=== PATIENT | male | born 1950 | race Caucasian/White ===

== ENCOUNTER → 2020-01-05 | Outpatient (CLI) | payer OTHER ==
[~2020-01-05] MED LIST: DILAUDID2 MG PO; FLOMAX0.4 MG PO; LEVAQUIN500 MG PO; PEPCID20 MG PO; ZOFRAN ODT4 MG SL
--- NOTE | 2020-01-05 11:51 | Diagnostic Imaging Report ---
Right shoulder, 2 views INDICATION: ^[id number] ^[id number] ^PAIN IN RIGHT SHOULDER Comparison: None available. Discussion: Negative for grossly displaced fracture or dislocation. Normal internal rotation is noted. Glenohumeral joint space is well maintained. Severe degenerative change of the clavicular joint space is noted with inferior spurring. Soft tissues are unremarkable. Partially visualized lung parenchyma is clear. IMPRESSION: Negative for acute displaced fracture or dislocation of the right shoulder. Severe right acromioclavicular degenerative changes noted. Signed by: Emmanuel Denny MD on 01/05/2020 11:48 AM
== END ==
LOC: RAD 10:50
PROVIDERS: ATTEND Family Medicine
DX: M25.511 Pain in right shoulder (principal)

== ENCOUNTER 2021-05-28 12:35 | Inpatient (IN) | payer MEDICARE, OTHER ==
[~2021-05-28] VITALS: Ht 167.6 cm; Wt 69.9 kg
[2021-05-28] MEDS ORDERED: DIGOXIN INJ 0.25 MG/ML 2 ML AMP IV STA ×2 (12:47)
[2021-05-28] MEDS ORDERED: DILTIAZEM HCL 5 MG/ML 5 ML VIAL IV STA (12:47)
[2021-05-28] MEDS ORDERED: METOPROLOL TARTRATE INJ 1 MG/ML VIAL IV STA (12:47)
[2021-05-28 13:02] LABS: BASOPHILS # (AUTO) 0.1 (0.0-0.1); BASOPHILS % 0.3 % (0.0-1.0); EOSINOPHILS # (AUTO) 0.1 (0.0-0.4); EOSINOPHILS % 0.2 % (0.0-6.0); HEMATOCRIT 45.8 % (38.2-49.6); HEMOGLOBIN 15.3 g/dL (14.0-18.0); LYMPHOCYTES # (AUTO) 1.7 (1.0-3.2); LYMPHOCYTES % 8.1 % (18.0-39.1); MEAN CORPUSCULAR HEMOGLOBIN 32.8 pg (28-32); MEAN CORPUSCULAR HGB CONC 33.4 g/dL (31-35); MEAN CORPUSCULAR VOLUME 98.3 fL (81-99); MONOCYTES # (AUTO) 1.3 (0.2-0.8); MONOCYTES % 6.3 % (4.4-11.3); NEUTROPHILS # (AUTO) 17.7 (2.1-6.9); NEUTROPHILS % 84.3 % (38.7-80.0); PLATELET COUNT 203 x10e3/uL (140-360); RED BLOOD COUNT 4.66 x10e6/uL (4.3-5.7); RED CELL DISTRIBUTION WIDTH 14.2 % (11.7-14.4)
[2021-05-28 13:21] LABS: ANION GAP 15.9 mmol/L (8-16); CALCIUM 10.1 mg/dL (8.4-10.2); CREATININE, SERUM 1.44 mg/dL (0.72-1.25); MAGNESIUM 1.8 MG/DL (1.3-2.1); POTASSIUM 3.9 mmol/L (3.5-5.1)
[2021-05-28] MEDS ORDERED: SODIUM CHLORIDE 0.9% 1000ML 1,000 ML IV ONE ×2 (13:30→15:30)
[2021-05-28] MEDS ORDERED: ONDANSETRON HCL INJ 2MG/ML 2ML 2 MG/ML VIAL IV PRN ×2 (13:45→14:45)
[2021-05-28] MEDS ORDERED: ACETAMINOPHEN 325 MG TAB PO ONE ×2 (13:45)
[2021-05-28] MEDS ORDERED: CEFTRIAXONE 1 GM in SODIUM CHLORIDE 0.9% 50ML 50 ML IV SCH (14:00)
[2021-05-28] MEDS ORDERED: ACETAMINOPHEN 325 MG TAB ONE (14:03)
[2021-05-28] MEDS ORDERED: IOPAMIDOL 370 MG/ML 200 ML INFUS..BTL INJ ONE (14:15)
[2021-05-28] MEDS ORDERED: SODIUM CHLORIDE 0.9% 50ML 50 ML ONE (14:15)
[2021-05-28] MEDS ORDERED: SODIUM CHLORIDE FLUSH 10 ML SYR INJ PRN (14:45)
[2021-05-28] MEDS ORDERED: ASPIRIN 81 MG CHEW TAB PO ONE (14:45)
[2021-05-28 14:56] LABS: CLARITY,URINE SL CLOUDY (CLEAR); COLOR,URINE YELLOW (YELLOW); KETONES,URINE NEGATIVE (NEGATIVE); LEUKOCYTE ESTERASE ,URINE NEGATIVE (NEGATIVE); NITRITE,URINE NEGATIVE (NEGATIVE); PROTEIN,URINE DIPSTICK TRACE (NEGATIVE)
[2021-05-28 14:57] LABS: URINE UROBILINOGEN 0.2 mg/dL (0.2 - 1)
[2021-05-28 15:03] LABS: AMORPHOUS SEDIMENT,URINE FEW (FEW); BACTERIA,URINE FEW /HPF; HYALINE CASTS 0-1 (0-1)
[2021-05-28 15:04] LABS: MUCUS,URINE MODERATE (RARE)
[2021-05-28] MEDS ORDERED: IBUPROFEN 600 MG TAB PO PRN (15:30)
[2021-05-28 16:21] VITALS: BP 98/66
[2021-05-28 16:27] VITALS: BP 98/66
[2021-05-28 16:44] VITALS: BP 98/66
[2021-05-28] MEDS ORDERED: METOPROLOL TARTRATE 25 MG TAB PO SCH (17:00)
[2021-05-28] MEDS ORDERED: HEPARIN 25,000 UNIT 800 UNIT in DEXTROSE 5% 250ML 250 ML IV SCH ×4 (17:15)
[2021-05-28] MEDS ORDERED: AMIODARONE HCL 150 MG in DEXTROSE 5% 100ML 100 ML IV ONE (17:15)
[2021-05-28] MEDS ORDERED: AMIODARONE 900MG 500 ML IV SCH ×2 (17:30→23:30)
[2021-05-28 17:50] LABS: INR 1.42; PROTHROMBIN TIME 18.5 seconds (11.9-14.5)
[2021-05-28 17:51] LABS: PARTIAL THROMBOPLASTIN TIME 42.4 seconds (23.8-35.5)
[2021-05-28] MEDS ORDERED: ALTOPREV40 MG PO (18:06)
[2021-05-28] MEDS ORDERED: GLIMEPIRIDE2 MG PO (18:07)
[2021-05-28] MEDS ORDERED: ELIQUIS5 MG PO (18:08)
[2021-05-28] MEDS ORDERED: CETIRIZINE HCL10 MG PO (18:08)
[2021-05-28] MEDS ORDERED: METFORMIN HCL500 MG PO (18:09)
[2021-05-28 19:00] VITALS: BP 119/77
[2021-05-28 23:00] VITALS: BP 122/65
[2021-05-28] MEDS: METOPROLOL TARTRATE 25 MG TAB PO SCH (23:45)
[2021-05-28] MEDS: CEFTRIAXONE 1 GM in SODIUM CHLORIDE 0.9% 50ML 50 ML IV SCH (23:45)
[2021-05-29] VITALS (7 sets, daily range): BP systolic 87–115; BP diastolic 52–69
[2021-05-29] MEDS ORDERED: ACETAMINOPHEN 325 MG TAB PO ONE
[2021-05-29] MEDS: IPRATROPIUM BROMIDE 0.02% 2.5 ML NEB NEB SCH ×3 (01:00→13:00)
[2021-05-29 05:20] LABS: BASOPHILS # (AUTO) 0.1 (0.0-0.1); BASOPHILS % 0.4 % (0.0-1.0); HEMATOCRIT 38.9 % (38.2-49.6); HEMOGLOBIN 12.9 g/dL (14.0-18.0); LYMPHOCYTES # (AUTO) 1.8 (1.0-3.2); LYMPHOCYTES % 11.4 % (18.0-39.1); MEAN CORPUSCULAR HEMOGLOBIN 32.3 pg (28-32); MEAN CORPUSCULAR HGB CONC 33.2 g/dL (31-35); MEAN CORPUSCULAR VOLUME 97.3 fL (81-99); MONOCYTES # (AUTO) 1.2 (0.2-0.8); MONOCYTES % 7.2 % (4.4-11.3); NEUTROPHILS % 80.3 % (38.7-80.0); PLATELET COUNT 151 x10e3/uL (140-360); RED CELL DISTRIBUTION WIDTH 14.2 % (11.7-14.4)
[2021-05-29 05:50] LABS: ANION GAP 11.6 mmol/L (8-16); CREATININE, SERUM 1.22 mg/dL (0.72-1.25); POTASSIUM 3.6 mmol/L (3.5-5.1)
[2021-05-29 06:19] LABS: CREATINE KINASE MB 0.7 ng/mL (0-5.0)
[2021-05-29] MEDS ORDERED: DEXTROSE 50% SYRINGE 50 ML IV PRN (09:00)
[2021-05-29] MEDS: CEFTRIAXONE 1 GM in SODIUM CHLORIDE 0.9% 50ML 50 ML IV SCH ×2 (09:10→20:57)
[2021-05-29] MEDS: ASPIRIN 81 MG ENTERIC COATED PO SCH (09:10)
[2021-05-29] MEDS: APIXABAN 5 MG TABLET PO SCH ×2 (09:10→17:02)
[2021-05-29] MEDS: AMIODARONE HCL 200 MG TAB PO SCH ×2 (09:10→17:02)
[2021-05-29] MEDS: METOPROLOL TARTRATE 25 MG TAB PO SCH ×2 (09:11→17:02)
[2021-05-29] MEDS: LORATADINE 10 MG TAB PO SCH (09:43)
[2021-05-29] MEDS: SODIUM CHLORIDE 0.9% 1000ML 1,000 ML IV SCH ×2 (09:43→19:47)
[2021-05-29] MEDS: INSULIN LISPRO 100 UNIT/1 ML 3ML VIAL SQ SCH ×3 (11:30→20:57)
[2021-05-29 13:18] LABS: CREATINE KINASE MB 0.7 ng/mL (0-5.0)
[2021-05-29] MEDS: TAMSULOSIN HCL 0.4 MG CAP PO SCH (17:02)
[2021-05-29] MEDS: SIMVASTATIN 20 MG TAB PO SCH (20:57)
[2021-05-29] MEDS: MELATONIN 5 MG TABLET PO PRN (20:57)
[2021-05-30] VITALS (9 sets, daily range): BP systolic 93–109; BP diastolic 50–76
[2021-05-30] MEDS: SODIUM CHLORIDE 0.9% 1000ML 1,000 ML IV SCH ×2 (05:17→14:36)
[2021-05-30 06:09] LABS: BASOPHILS # (AUTO) 0.1 (0.0-0.1); BASOPHILS % 0.5 % (0.0-1.0); EOSINOPHILS # (AUTO) 0.2 (0.0-0.4); EOSINOPHILS % 1.8 % (0.0-6.0); HEMATOCRIT 35.8 % (38.2-49.6); HEMOGLOBIN 11.8 g/dL (14.0-18.0); LYMPHOCYTES # (AUTO) 1.5 (1.0-3.2); LYMPHOCYTES % 15.2 % (18.0-39.1); MEAN CORPUSCULAR HEMOGLOBIN 32.3 pg (28-32); MEAN CORPUSCULAR VOLUME 98.1 fL (81-99); MONOCYTES # (AUTO) 0.9 (0.2-0.8); MONOCYTES % 9.6 % (4.4-11.3); NEUTROPHILS # (AUTO) 7.1 (2.1-6.9); NEUTROPHILS % 72.2 % (38.7-80.0); PLATELET COUNT 141 x10e3/uL (140-360); RED BLOOD COUNT 3.65 x10e6/uL (4.3-5.7); RED CELL DISTRIBUTION WIDTH 14.4 % (11.7-14.4)
[2021-05-30 06:28] LABS: ANION GAP 12.6 mmol/L (8-16); CALCIUM 8.3 mg/dL (8.4-10.2); CREATININE, SERUM 1.35 mg/dL (0.72-1.25); POTASSIUM 3.6 mmol/L (3.5-5.1)
[2021-05-30] MEDS: INSULIN LISPRO 100 UNIT/1 ML 3ML VIAL SQ SCH ×4 (07:30→21:00)
[2021-05-30] MEDS: APIXABAN 5 MG TABLET PO SCH ×2 (08:29→18:37)
[2021-05-30] MEDS: LORATADINE 10 MG TAB PO SCH (08:29)
[2021-05-30] MEDS: AMIODARONE HCL 200 MG TAB PO SCH ×2 (08:29→19:53)
[2021-05-30] MEDS: ASPIRIN 81 MG ENTERIC COATED PO SCH (08:29)
[2021-05-30] MEDS: METOPROLOL TARTRATE 25 MG TAB PO SCH ×2 (08:44→17:00)
[2021-05-30] MEDS: CEFTRIAXONE 1 GM in SODIUM CHLORIDE 0.9% 50ML 50 ML IV SCH ×2 (08:44→21:20)
[2021-05-30] MEDS ORDERED: AMIODARONE HCL 100 ML IV ONE (18:30)
[2021-05-30] MEDS: TAMSULOSIN HCL 0.4 MG CAP PO SCH (18:37)
[2021-05-30] MEDS: SIMVASTATIN 20 MG TAB PO SCH (21:20)
[2021-05-30] MEDS: MELATONIN 5 MG TABLET PO PRN (22:10)
[2021-05-31] VITALS (9 sets, daily range): BP systolic 88–138; BP diastolic 55–77
[2021-05-31] MEDS: SODIUM CHLORIDE 0.9% 1000ML 1,000 ML IV SCH (02:20)
[2021-05-31] MEDS: AZITHROMYCIN 250 MG TAB PO SCH (06:00)
[2021-05-31] MEDS: LEVALBUTEROL HCL SOLN NEBU 0.63 MG/3 ML NEB INH PRN (06:30)
[2021-05-31] MEDS: IPRATROPIUM BROMIDE 0.02% 2.5 ML NEB NEB SCH ×3 (06:30→18:40)
[2021-05-31] MEDS: INSULIN LISPRO 100 UNIT/1 ML 3ML VIAL SQ SCH ×4 (07:30→21:00)
[2021-05-31] MEDS: METOPROLOL TARTRATE 25 MG TAB PO SCH (09:00)
[2021-05-31] MEDS ORDERED: ONDANSETRON HCL 4 MG ORAL DISINTEGRATING TAB PO PRN (10:00)
[2021-05-31] MEDS: ASPIRIN 81 MG ENTERIC COATED PO SCH (10:02)
[2021-05-31] MEDS: CEFTRIAXONE 1 GM in SODIUM CHLORIDE 0.9% 50ML 50 ML IV SCH ×2 (10:02→21:25)
[2021-05-31] MEDS: LORATADINE 10 MG TAB PO SCH (10:03)
[2021-05-31] MEDS: AMIODARONE HCL 200 MG TAB PO SCH ×2 (10:03→16:53)
[2021-05-31] MEDS: APIXABAN 5 MG TABLET PO SCH ×2 (10:03→16:54)
[2021-05-31] MEDS ORDERED: POTASSIUM CHLORIDE 10MEQ EA PO ONE (10:15)
[2021-05-31] MEDS ORDERED: FUROSEMIDE INJ 10 MG/ML 4 ML VIAL IV ONE (10:15)
[2021-05-31] MEDS: FUROSEMIDE INJ 10 MG/ML 4 ML VIAL IV SCH (13:30)
[2021-05-31] MEDS ORDERED: METOPROLOL TARTRATE 25 MG TAB PO SCH (16:15)
[2021-05-31] MEDS: TAMSULOSIN HCL 0.4 MG CAP PO SCH (16:54)
[2021-05-31] MEDS: POTASSIUM CHLORIDE 10MEQ EA PO SCH (16:55)
[2021-05-31] MEDS: ACETAMINOPHEN 325 MG TAB PO PRN (19:33)
[2021-05-31] MEDS: SIMVASTATIN 20 MG TAB PO SCH (21:25)
[2021-05-31] MEDS: MELATONIN 5 MG TABLET PO PRN (22:35)
[2021-06-01] VITALS (8 sets, daily range): BP systolic 94–111; BP diastolic 44–70
[2021-06-01] MEDS: METOPROLOL TARTRATE 25 MG TAB PO SCH ×3 (01:14→16:46)
[2021-06-01] MEDS: IPRATROPIUM BROMIDE 0.02% 2.5 ML NEB NEB SCH ×4 (02:38→19:45)
[2021-06-01 05:01] LABS: BASOPHILS % 0.5 % (0.0-1.0); EOSINOPHILS # (AUTO) 0.2 (0.0-0.4); EOSINOPHILS % 2.3 % (0.0-6.0); HEMATOCRIT 35.8 % (38.2-49.6); HEMOGLOBIN 11.9 g/dL (14.0-18.0); LYMPHOCYTES # (AUTO) 1.2 (1.0-3.2); LYMPHOCYTES % 14.6 % (18.0-39.1); MEAN CORPUSCULAR HEMOGLOBIN 32.5 pg (28-32); MEAN CORPUSCULAR HGB CONC 33.2 g/dL (31-35); MEAN CORPUSCULAR VOLUME 97.8 fL (81-99); MONOCYTES # (AUTO) 0.8 (0.2-0.8); MONOCYTES % 9.7 % (4.4-11.3); NEUTROPHILS # (AUTO) 5.9 (2.1-6.9); NEUTROPHILS % 72.3 % (38.7-80.0); PLATELET COUNT 163 x10e3/uL (140-360); RED BLOOD COUNT 3.66 x10e6/uL (4.3-5.7); RED CELL DISTRIBUTION WIDTH 13.9 % (11.7-14.4)
[2021-06-01 05:20] LABS: ANION GAP 12.3 mmol/L (8-16); CALCIUM 8.8 mg/dL (8.4-10.2); CREATININE, SERUM 0.98 mg/dL (0.72-1.25); POTASSIUM 3.3 mmol/L (3.5-5.1)
[2021-06-01] MEDS: AZITHROMYCIN 250 MG TAB PO SCH (06:00)
[2021-06-01] MEDS: LEVALBUTEROL HCL SOLN NEBU 0.63 MG/3 ML NEB INH PRN ×2 (07:05→19:45)
[2021-06-01] MEDS: INSULIN LISPRO 100 UNIT/1 ML 3ML VIAL SQ SCH ×4 (07:30→20:38)
[2021-06-01] MEDS: CEFTRIAXONE 1 GM in SODIUM CHLORIDE 0.9% 50ML 50 ML IV SCH ×2 (08:26→20:38)
[2021-06-01] MEDS: POTASSIUM CHLORIDE 10MEQ EA PO SCH ×2 (08:26→16:45)
[2021-06-01] MEDS: ASPIRIN 81 MG ENTERIC COATED PO SCH (08:26)
[2021-06-01] MEDS: APIXABAN 5 MG TABLET PO SCH ×2 (08:26→16:45)
[2021-06-01] MEDS: AMIODARONE HCL 200 MG TAB PO SCH ×2 (08:26→16:45)
[2021-06-01] MEDS: LORATADINE 10 MG TAB PO SCH (08:26)
[2021-06-01] MEDS: FUROSEMIDE INJ 10 MG/ML 4 ML VIAL IV SCH (08:26)
[2021-06-01] MEDS: TAMSULOSIN HCL 0.4 MG CAP PO SCH (16:45)
[2021-06-01] MEDS: SIMVASTATIN 20 MG TAB PO SCH (20:38)
[2021-06-01] MEDS: MELATONIN 5 MG TABLET PO PRN (21:40)
[2021-06-02] VITALS (10 sets, daily range): BP systolic 104–136; BP diastolic 58–72
[2021-06-02] MEDS: METOPROLOL TARTRATE 25 MG TAB PO SCH ×3 (01:04→17:49)
[2021-06-02] MEDS: IPRATROPIUM BROMIDE 0.02% 2.5 ML NEB NEB SCH ×4 (02:15→19:35)
[2021-06-02 05:26] LABS: ANION GAP 11.5 mmol/L (8-16); CALCIUM 8.9 mg/dL (8.4-10.2); CREATININE, SERUM 0.93 mg/dL (0.72-1.25); POTASSIUM 3.5 mmol/L (3.5-5.1)
[2021-06-02] MEDS: AZITHROMYCIN 250 MG TAB PO SCH (05:52)
[2021-06-02] MEDS: LEVALBUTEROL HCL SOLN NEBU 0.63 MG/3 ML NEB INH PRN (06:56)
[2021-06-02] MEDS: INSULIN LISPRO 100 UNIT/1 ML 3ML VIAL SQ SCH ×4 (07:30→21:00)
[2021-06-02] MEDS ORDERED: POTASSIUM CHLORIDE 10MEQ EA PO ONE (08:00)
[2021-06-02] MEDS: ASPIRIN 81 MG ENTERIC COATED PO SCH (09:34)
[2021-06-02] MEDS: LORATADINE 10 MG TAB PO SCH (09:34)
[2021-06-02] MEDS: AMIODARONE HCL 200 MG TAB PO SCH ×2 (09:34→17:12)
[2021-06-02] MEDS: FUROSEMIDE INJ 10 MG/ML 4 ML VIAL IV SCH (09:34)
[2021-06-02] MEDS: POTASSIUM CHLORIDE 10MEQ EA PO SCH ×2 (09:34→17:13)
[2021-06-02] MEDS: APIXABAN 5 MG TABLET PO SCH ×2 (09:34→17:12)
[2021-06-02] MEDS: CEFTRIAXONE 1 GM in SODIUM CHLORIDE 0.9% 50ML 50 ML IV SCH ×2 (09:34→21:18)
[2021-06-02] MEDS: TAMSULOSIN HCL 0.4 MG CAP PO SCH (17:12)
[2021-06-02] MEDS: SIMVASTATIN 20 MG TAB PO SCH (21:20)
[2021-06-02] MEDS: MELATONIN 5 MG TABLET PO PRN (21:30)
[2021-06-03] VITALS (15 sets, daily range): BP systolic 100–142; BP diastolic 56–84
[2021-06-03] MEDS: IPRATROPIUM BROMIDE 0.02% 2.5 ML NEB NEB SCH ×4 (00:10→19:30)
[2021-06-03] MEDS: METOPROLOL TARTRATE 25 MG TAB PO SCH ×3 (01:07→17:10)
[2021-06-03] MEDS: ACETAMINOPHEN 325 MG TAB PO PRN ×2 (01:08→19:49)
[2021-06-03] MEDS: AZITHROMYCIN 250 MG TAB PO SCH (05:29)
[2021-06-03] MEDS: INSULIN LISPRO 100 UNIT/1 ML 3ML VIAL SQ SCH ×4 (08:41→20:57)
[2021-06-03] MEDS: CEFTRIAXONE 1 GM in SODIUM CHLORIDE 0.9% 50ML 50 ML IV SCH ×2 (08:57→20:27)
[2021-06-03] MEDS: FUROSEMIDE INJ 10 MG/ML 4 ML VIAL IV SCH (08:57)
[2021-06-03] MEDS: LORATADINE 10 MG TAB PO SCH (08:57)
[2021-06-03] MEDS: APIXABAN 5 MG TABLET PO SCH ×2 (08:57→17:09)
[2021-06-03] MEDS: ASPIRIN 81 MG ENTERIC COATED PO SCH (08:57)
[2021-06-03] MEDS: AMIODARONE HCL 200 MG TAB PO SCH ×2 (08:57→17:09)
[2021-06-03] MEDS: POTASSIUM CHLORIDE 10MEQ EA PO SCH ×2 (08:59→17:09)
[2021-06-03] MEDS: SPIRONOLACTONE 25 MG TAB PO SCH (12:43)
[2021-06-03] MEDS ORDERED: SPIRONOLACTONE 25 MG TAB PO NR (17:00)
[2021-06-03] MEDS: TAMSULOSIN HCL 0.4 MG CAP PO SCH (17:09)
[2021-06-03] MEDS: MELATONIN 5 MG TABLET PO PRN (20:57)
[2021-06-03] MEDS: SIMVASTATIN 20 MG TAB PO SCH (20:57)
[2021-06-04] VITALS (11 sets, daily range): BP systolic 103–119; BP diastolic 50–75
[2021-06-04] MEDS: METOPROLOL TARTRATE 25 MG TAB PO SCH ×3 (01:02→17:00)
[2021-06-04 06:01] LABS: BASOPHILS % 0.4 % (0.0-1.0); EOSINOPHILS # (AUTO) 0.4 (0.0-0.4); EOSINOPHILS % 3.4 % (0.0-6.0); HEMATOCRIT 34.3 % (38.2-49.6); HEMOGLOBIN 11.3 g/dL (14.0-18.0); LYMPHOCYTES # (AUTO) 2.2 (1.0-3.2); LYMPHOCYTES % 19.4 % (18.0-39.1); MEAN CORPUSCULAR HEMOGLOBIN 31.9 pg (28-32); MEAN CORPUSCULAR HGB CONC 32.9 g/dL (31-35); MEAN CORPUSCULAR VOLUME 96.9 fL (81-99); MONOCYTES # (AUTO) 0.8 (0.2-0.8); MONOCYTES % 6.9 % (4.4-11.3); NEUTROPHILS # (AUTO) 7.6 (2.1-6.9); NEUTROPHILS % 67.9 % (38.7-80.0); PLATELET COUNT 243 x10e3/uL (140-360); RED BLOOD COUNT 3.54 x10e6/uL (4.3-5.7); RED CELL DISTRIBUTION WIDTH 13.9 % (11.7-14.4)
[2021-06-04 06:41] LABS: ANION GAP 11.6 mmol/L (8-16); CALCIUM 9.2 mg/dL (8.4-10.2); CREATININE, SERUM 0.94 mg/dL (0.72-1.25); POTASSIUM 3.6 mmol/L (3.5-5.1)
[2021-06-04] MEDS: IPRATROPIUM BROMIDE 0.02% 2.5 ML NEB NEB SCH ×2 (06:46→14:00)
[2021-06-04] MEDS: SPIRONOLACTONE 25 MG TAB PO SCH ×2 (08:00→12:00)
[2021-06-04] MEDS: AMIODARONE HCL 200 MG TAB PO SCH ×2 (09:00→17:00)
[2021-06-04] MEDS: FUROSEMIDE INJ 10 MG/ML 4 ML VIAL IV SCH (09:00)
[2021-06-04] MEDS: ASPIRIN 81 MG ENTERIC COATED PO SCH (09:00)
[2021-06-04] MEDS: LORATADINE 10 MG TAB PO SCH (09:00)
[2021-06-04] MEDS ORDERED: LOSARTAN POTASSIUM 25 MG TAB PO SCH (09:00)
[2021-06-04] MEDS: POTASSIUM CHLORIDE 10MEQ EA PO SCH ×2 (09:00→17:00)
[2021-06-04] MEDS: CEFTRIAXONE 1 GM in SODIUM CHLORIDE 0.9% 50ML 50 ML IV SCH (09:00)
[2021-06-04] MEDS: APIXABAN 5 MG TABLET PO SCH ×2 (09:00→17:00)
[2021-06-04] MEDS: TAMSULOSIN HCL 0.4 MG CAP PO SCH (17:00)
[2021-06-05] MEDS ORDERED: FUROSEMIDE 40 MG TAB PO SCH (09:00)
== END 2021-06-04 19:10 | disposition home or self-care (01) | DRG 871 ==
LOC: ER 13:00 → ERHOLD 14:43 → IMCU 16:07
PROVIDERS: ADMIT Internal Medicine; ATTEND Internal Medicine
DX: A41.9 Sepsis, unspecified organism (principal); J18.9 Pneumonia, unspecified organism; I50.23 Acute on chronic systolic (congestive) heart failure; N17.9 Acute kidney failure, unspecified; I48.19 Other persistent atrial fibrillation; I48.3 Typical atrial flutter; R65.20 Severe sepsis without septic shock; E86.0 Dehydration; N40.0 Benign prostatic hyperplasia without lower urinary tract symptoms; Z87.891 Personal history of nicotine dependence; M19.90 Unspecified osteoarthritis, unspecified site; Z79.01 Long term (current) use of anticoagulants; E11.9 Type 2 diabetes mellitus without complications; Z88.5 Allergy status to narcotic agent; I11.0 Hypertensive heart disease with heart failure; Z99.81 Dependence on supplemental oxygen; Z20.822 Contact with and (suspected) exposure to COVID-19
CPT/HCPCS: 36415; 71045; 71046; 71250; 74177; 80048; 80053; 81001; 82550; 82553; 82948; 83605; 83735; 83880; 84484; 85025; 85610; 85730; 87040; 87086; 93005; 93306; 94640; 94799; 96372; 97139; 99284; J0456; J0696; J1160; J1940; J2405; J7030; J7050; Q9967; U0002